=== PATIENT | male | born 1985 | race Two or more races ===

== ENCOUNTER 2023-11-07 19:38 | Emergency (ER) | payer OTHER ==
[~2023-11-07] VITALS: Ht 177.8 cm; Wt 83.0 kg
[2023-11-07 21:41] LABS: HEMATOCRIT 40.2 % (39.0-48.0); HEMOGLOBIN 13.4 g/dL (13-16.00); MEAN CELL VOLUME 80.2 fL (80.0-100.00); MEAN CORPUSCULAR HEMOGLOBIN 26.7 pg (27.00-32.0); MEAN CORPUSCULAR HGB CONC 33.3 g/dl (32.0-36.0); PLATELET COUNT 360 K/uL (150-450); RED BLOOD COUNT 5.01 M/uL (4.00-6.00); RED CELL DISTRIBUTION WIDTH 14.2 % (11.5-14.5)
[2023-11-07 22:13] LABS: CALCIUM 9.3 mg/dL (8.5-10.1); CREATININE SERUM 0.78 mg/dL (0.70-1.30); GFR 110.81; POTASSIUM 4.12 mEq/L (3.5-5.1)
[2023-11-07 23:13] LABS: URINE APPEARANCE Clear; URINE BACTERIA 28.9 uL (0.0-1933); URINE BILIRRUBIN Negative (NEGATIVE); URINE BLOOD Negative; URINE COLOR Dark Yellow; URINE GLUCOSE Negative (NEGATIVE); URINE LEUKOCYTE Negative; URINE NITRATE Negative; URINE PROTEIN 30 (NEGATIVE); URINE RBC 3.5 uL (0.0-20.8); URINE WBC 21.6 uL (0.0-23.2)
[2023-11-07 23:28] LABS: URINE EPITHELIAL CELLS 1.2 uL (0.0-38.8)
[2023-11-07 23:29] LABS: URINE SPERM FEW
[2023-11-08] MEDS ORDERED: DOLOGESIC-DF 51 EACH PO (01:47)
== END 2023-11-08 01:54 ==
LOC: ER 19:39
PROVIDERS: Emergency Medicine
DX: K63.89 Other specified diseases of intestine (principal); Z88.0 Allergy status to penicillin